=== PATIENT | female | born 1935 | race Caucasian/White ===

== ENCOUNTER 2020-02-04 18:39 | Emergency (ER) | payer MEDICARE, MEDICAID ==
[~2020-02-04] VITALS: Ht 160 cm; Wt 91.6 kg
[2020-02-04 18:48] VITALS: BP_SYST 126
--- NOTE | 2020-02-04 18:48 | NUR ---
Patient denied any chest pain or shortness of breath. Told to wait in the [place]. Informed of the approximate wait time. Instructed to notify ED staff for any changes in condition or worsening of symptoms while waiting to be seen by the provider. Patient verbalized understanding.
--- NOTE | 2020-02-04 18:56 | NUR ---
NICHELLE Bah at bedside examining patient.
[2020-02-04] MEDS ORDERED: NS 500 ML IV ONE (19:00)
[2020-02-04] MEDS ORDERED: ACETAMINOPHEN 500 MG TABLET PO ONE (19:00)
[2020-02-04] MEDS ORDERED: METOCLOPRAMIDE HCL 10 MG/2 ML VIAL IVP ONE (19:00)
--- NOTE | 2020-02-04 19:01 | NUR ---
Patient to ER bed 06 to gown for evaluation. Side rails up.
--- NOTE | 2020-02-04 19:05 | NUR ---
pt BIB ALS from home c/o of syncopal episode while pushing and straining on the toilet at home. pt reports this is not the first time this has happened. EMS reports pt being nauseous, vomiting, and having a nosebleed prior to arrival. pt reports having a headache at the moment.
--- NOTE | 2020-02-04 19:05 | NUR ---
# 20 gauge angiocath placed to LEFT HAND PLACED BY FIRE. Flushed with 10 cc of normal saline. No evidence of infiltration noted. Patient tolerated well.
--- NOTE | 2020-02-04 19:14 | NUR ---
pt a&o x4, reports being nauseous and dizzy, denies pain.
--- NOTE | 2020-02-04 19:15 | NUR ---
honey - JESSE 58. notified and ordered 50mL of d50
[2020-02-04 19:21] LABS: BASOPHILS # (AUTO) 0.1 K/uL (0.0-0.2); BASOPHILS % (AUTO) 0.7 % (0.0-2.0); EOSINOPHILS # (AUTO) 0.2 K/uL (0.0-0.4); EOSINOPHILS % (AUTO) 2.6 % (0.0-4.0); HEMATOCRIT 37.9 % (36-48); HEMOGLOBIN 12.3 g/dL (12.0-16.0); LYMPHOCYTES % (AUTO) 34.5 % (20.5-51.5); MEAN CORPUSCULAR HEMOGLOBIN 30 pg (27-31); MEAN CORPUSCULAR HGB CONC 33 % (32-36); MEAN CORPUSCULAR VOLUME 91 fL (79.0-98.0); MONOCYTES # (AUTO) 0.7 K/uL (0.0-1.0); MONOCYTES % (AUTO) 8.2 % (1.7-9.3); NEUTROPHILS # (AUTO) 4.6 K/uL (1.8-7.7); PLATELET COUNT (AUTO) 196 K/uL (130-430); RED BLOOD CELL COUNT(AUTO) 4.17 MIL/uL (4.2-6.2); RED CELL DISTRIBUTION WIDTH 14.1 % (9.0-15.0); WHITE BLOOD COUNT (AUTO) 8.6 K/uL (4.8-10.8)
--- NOTE | 2020-02-04 19:21 | NUR ---
Received report from KIRSTY Almeida for continuation of care.
[2020-02-04] MEDS ORDERED: DEXTROSE 50% JECT 50 ML DISP.SYRIN IVP ONE ×2 (19:30→21:45)
[2020-02-04 19:33] LABS: ANION GAP 9 (5-15); CALCIUM 10.1 mg/dL (8.4-11.0); CHLORIDE 103 mmol/L (98-107); CREATININE 1.34 mg/dL (0.55-1.30); GLUCOSE 58 mg/dL (70-99); POTASSIUM 4.1 mmol/L (3.5-5.1); SODIUM SERUM 141 mmol/L (136-145); UREA NITROGEN, BLOOD 25 mg/dL (8-21)
[2020-02-04 19:42] LABS: ALANINE AMINOTRANSFERASE 11 U/L (12-78); ALBUMIN 3.1 g/dL (3.4-4.8); ASPARTATE AMINOTRANSFERASE 18 U/L (10-37); TOTAL BILIRUBIN 0.3 mg/dL (0.0-1.0)
--- NOTE | 2020-02-04 20:01 | NUR ---
honey - bs 178. aware.
--- NOTE | 2020-02-04 20:16 | NUR ---
pt unable to give urine sample at this time.
--- NOTE | 2020-02-04 20:40 | NUR ---
spoke with pts son Arya, and updated him on status of pt with approval from pt beforehand.
--- NOTE | 2020-02-04 20:42 | NUR ---
Patient transported to radiology via [facility], accompanied by pilar.
--- NOTE | 2020-02-04 21:35 | NUR ---
honey - bs 104. aware.
--- NOTE | 2020-02-04 21:40 | NUR ---
pt given orange juice and cranberry juice to drink.
--- NOTE | 2020-02-04 21:55 | NUR ---
spoke with son Arya to be able to give pt ride home.
[2020-02-04 22:15] VITALS: BP_SYST 146
== END 2020-02-04 22:15 | disposition home or self-care (01) ==
LOC: SED 18:39
DX: S00.83XA Contusion of other part of head, initial encounter (principal); R55 Syncope and collapse; E11.649 Type 2 diabetes mellitus with hypoglycemia without coma; I10 Essential (primary) hypertension; Z88.0 Allergy status to penicillin; W22.8XXA Striking against or struck by other objects, initial encounter; Y93.89 Activity, other specified; Y92.89 Other specified places as the place of occurrence of the external cause; Y99.8 Other external cause status
CPT/HCPCS: 36415; 70450; 80053; 82962; 84484; 85025; 93005; 96361; 96374; 96375; 96376; 99285; J2765; J7040

== ENCOUNTER 2021-10-28 05:36 | Inpatient (IN) | payer MEDICARE, MEDICAID ==
[~2021-10-28] VITALS: Ht 160 cm; Wt 91.2 kg
[2021-10-28 05:40] VITALS: BP_SYST 158
--- NOTE | 2021-10-28 05:40 | NUR ---
Placed in room 2 . Placed on cardiac rn, blood pressure machine and pulse oximeter. To gown for exam. Side rails up. Report given to Alea LOFTON (Reg)by Cheyenne LOFTON(rosa).
--- NOTE | 2021-10-28 05:41 | NUR ---
86 YR OLD AOX4, FEMALE PT BROUGHT IN BY ALS WITH COMPLAINT OF CHEST PAIN WITH RADIATION TO LEFT SHOULDER WITH SOB. PT REPORTS HAVING LEFT SHOULDER PAIN FOR ONE DAY WITH HORTNESS OF BREATH. PT STATES YESTERDAY SHE TOOK THREE DOESES OF NITRO AND THE CHEST PAIN WAS RELIEVED. PER PARAMEDICS PT WS ADMINISTERED 324 OF ASA, AND ONE SPRAY OF NITRO SUBLINGUAL IN ROUTE. MD AT THE BEDSIDE.
--- NOTE | 2021-10-28 05:44 | NUR ---
NICHELLE Guaman at bedside examining patient.
[2021-10-28] MEDS ORDERED: NITROGLYCERIN 1 INCH (GM) OINT. TD ONE (05:45)
[2021-10-28] MEDS ORDERED: ASCO500T20 PO (06:14)
[2021-10-28] MEDS ORDERED: METO50TA7 PO (06:14)
[2021-10-28] MEDS ORDERED: ASPI-1155 PO (06:14)
[2021-10-28] MEDS ORDERED: INSULIN N SQ ×2 (06:14)
[2021-10-28] MEDS ORDERED: CLOP75TA32 PO (06:14)
[2021-10-28] MEDS ORDERED: CARB1TAB10 PO (06:14)
[2021-10-28] MEDS ORDERED: AMLO5TAB4 PO (06:14)
[2021-10-28] MEDS ORDERED: LIP20 PO (06:14)
[2021-10-28] MEDS ORDERED: LISI10TA29 PO (06:14)
[2021-10-28] MEDS ORDERED: ISOS120T8 PO (06:14)
[2021-10-28 06:18] LABS: BASOPHILS # (AUTO) 0.1 K/uL (0.0-0.2); BASOPHILS % (AUTO) 0.5 % (0.0-2.0); EOSINOPHILS # (AUTO) 0.1 K/uL (0.0-0.4); EOSINOPHILS % (AUTO) 0.6 % (0.0-4.0); HEMATOCRIT 38.1 % (36-48); HEMOGLOBIN 12.4 g/dL (12.0-16.0); LYMPHOCYTES # (AUTO) 2.1 K/uL (1.0-5.5); LYMPHOCYTES % (AUTO) 16.4 % (20.5-51.5); MEAN CORPUSCULAR HEMOGLOBIN 29 pg (27-31); MEAN CORPUSCULAR HGB CONC 33 % (32-36); MEAN CORPUSCULAR VOLUME 87 fL (79.0-98.0); MONOCYTES # (AUTO) 1.2 K/uL (0.0-1.0); MONOCYTES % (AUTO) 9.3 % (1.7-9.3); NEUTROPHILS # (AUTO) 9.3 K/uL (1.8-7.7); NEUTROPHILS % (AUTO) 73.2 % (40.0-70.0); PLATELET COUNT (AUTO) 144 K/uL (130-430); RED BLOOD CELL COUNT(AUTO) 4.36 MIL/uL (4.2-6.2); RED CELL DISTRIBUTION WIDTH 15.1 % (9.0-15.0); WHITE BLOOD COUNT (AUTO) 12.7 K/uL (4.8-10.8)
[2021-10-28] MEDS ORDERED: CALCIUM PO (06:24)
[2021-10-28 06:31] LABS: ANION GAP 6 (5-15); CALCIUM 8.7 mg/dL (8.4-11.0); CHLORIDE 105 mmol/L (98-107); CREATININE 1.71 mg/dL (0.55-1.30); GLUCOSE 206 mg/dL (70-99); POTASSIUM 4.4 mmol/L (3.5-5.1); SODIUM SERUM 137 mmol/L (136-145); UREA NITROGEN, BLOOD 37 mg/dL (8-21)
[2021-10-28 06:40] LABS: ALANINE AMINOTRANSFERASE 37 U/L (12-78); ALBUMIN 3.1 g/dL (3.4-4.8); ASPARTATE AMINOTRANSFERASE 51 U/L (10-37); TOTAL BILIRUBIN 0.3 mg/dL (0.0-1.0)
--- NOTE | 2021-10-28 06:45 | NUR ---
Critical lab; troponin of 2985 relayed to
--- NOTE | 2021-10-28 06:48 | NUR ---
Pt's son is at bedside.
--- NOTE | 2021-10-28 07:04 | NUR ---
REPORT RECEIVED FROM KIRSTY WHITTAKER FOR CONTINUING CARE
--- NOTE | 2021-10-28 07:31 | NUR ---
DR. ANGEL AT THE BEDSIDE
--- NOTE | 2021-10-28 07:35 | NUR ---
Admit bed requested Patient will be admitted to care of . Admitted to TELE unit. Diagnosis NSTEMI Inpatient (Yes or No) YES Observation (Yes or No) NO Orientation concerns or request close to nursing station (Yes or No) NO Covid Status NEGATIVE On vent or bipap NO Isolation requirements NO Needs a sitter NO From Home (Yes or if No enter name of facility) HOME Requires Dialysis (Yes or No) NO Med Rec Completed (Yes of No) YES
[2021-10-28] MEDS ORDERED: ZOLPIDEM TARTRATE 5 MG TABLET PO PRN (07:45)
[2021-10-28] MEDS ORDERED: ACETAMINOPHEN 325 MG TABLET PO PRN ×2 (07:45→09:30)
[2021-10-28] MEDS ORDERED: MAGNESIUM SULFATE 50 ML IV PRN (07:45)
[2021-10-28] MEDS ORDERED: POTASSIUM CHLORIDE 20 MEQ TAB.PRT.SR PO PRN (07:45)
[2021-10-28] MEDS ORDERED: DOCUSATE SODIUM 100 MG CAPSULE PO PRN (07:45)
[2021-10-28] MEDS ORDERED: MUPIROCIN 2% TOPICAL OINTMENT 22 GM NS PRN (07:45)
[2021-10-28] MEDS ORDERED: ONDANSETRON HCL 4 MG/2 ML VIAL IVP PRN (07:45)
[2021-10-28] MEDS ORDERED: DEXTROSE 50% JECT 50 ML DISP.SYRIN IVP PRN (07:45)
[2021-10-28] MEDS ORDERED: LORazepam 2 MG/ML VIAL IVP PRN (07:45)
[2021-10-28 08:12] LABS: PROTHROMBIN TIME 9.9 SECS (9.5-12.5)
--- NOTE | 2021-10-28 08:55 | NUR ---
DR. GALICIA AT THE BEDSIDE
--- NOTE | 2021-10-28 09:08 | NUR ---
Patient will be admitted to care of DR. ANGEL. Admitted to TELE unit. Will go to room 130A. Belongings list completed. Complete and up to date summary report printed. SBAR report to be given at bedside with opportunity for questions.
--- NOTE | 2021-10-28 09:11 | NUR ---
ECHO AT THE BEDSIDE
[2021-10-28] MEDS ORDERED: METO50TA16 PO (09:30)
--- NOTE | 2021-10-28 09:38 | NUR ---
CONSULTATION PAGED/CALLED Reason for Consultation: [] NSTEMI Person Who was Notified: [] DR GALICIA Consulting Physician: [] DR GALICIA Surface Miner Specialty: [] CARDIO Ordering Physician: [] DR ANGEL
[2021-10-28 10:00] VITALS: BP_SYST 119
--- NOTE | 2021-10-28 10:11 | NUR ---
admission notes received pt joby ma with diagnosis of nstemi, under dr reed, dr hickey also on the case, per report pt seen by pcp and cardio. vitals wnl, no fever, no sob, no c/o of pain. pt educated on the use of call light and bed controls. will cont to monitor,
[2021-10-28 10:30] VITALS: BP_SYST 119
[2021-10-28] MEDS: NACL 0.9% 1,000 ML IV SCH ×2 (11:08→22:27)
[2021-10-28] MEDS: ISOSORBIDE MONONITRATE 30 MG TAB.ER.24H PO SCH (11:15)
[2021-10-28] MEDS: ATORVASTATIN 20 MG TABLET PO SCH (11:16)
[2021-10-28] MEDS: amLODIPine BESYLATE 5 MG TABLET PO SCH (11:16)
[2021-10-28] MEDS: INSULIN LISPRO SLIDING SCALE 100 UNITS/ML VIAL (humaLOG) SUBCUT PRN ×2 (11:34→17:14)
[2021-10-28] MEDS ORDERED: HEPARIN SODIUM,PORCINE 5,000 UNITS/ML VIAL IVP ONE (12:45)
[2021-10-28] MEDS ORDERED: HEPARIN SODIUM,PORCINE 5,000 UNITS/ML VIAL ONE (12:54)
[2021-10-28] MEDS: HEPARIN 25,000 UNITS/D5W 250ML 250 ML IV PRN ×3 (13:05→22:24)
--- NOTE | 2021-10-28 13:05 | NUR ---
pt started on heparin drip, bolus ivp heparin given.
[2021-10-28] MEDS: CARBIDOPA/LEVODOPA 25/100 MG TABLET PO SCH ×2 (15:24→20:58)
[2021-10-28] MEDS: HEPARIN SODIUM,PORCINE 3000 UNITS/0.6 ML BOLUS IVP PRN ×2 (15:29→22:11)
[2021-10-28 17:00] VITALS: BP_SYST 108
--- NOTE | 2021-10-28 17:14 | NUR ---
paged dr thompson for pt's c/o of soreness on mid/left chest when breathing, troponin also high. trending up. pt on heparin drip.
--- NOTE | 2021-10-28 17:20 | NUR ---
LUNCHROOM SUPERVISOR DR GALICIA WAS CALLED, RE: TRENDING UP TROP LEVEL. SPOKE TO VICKIE.
--- NOTE | 2021-10-28 20:00 | NUR ---
Cardio Patient kept on 2 liters of oxygen per MED per patient with chest discomfort only if she takes a deep breath, telemetry with inverted T wave , received on heparin drip @ 200 units/ml, bleeding/ fall precaution explained to patient indication of medication verbalized understanding
[2021-10-28 20:30] VITALS: BP_SYST 140
[2021-10-28] MEDS: METOPROLOL TARTRATE 50 MG TABLET PO SCH (20:56)
--- NOTE | 2021-10-28 22:10 | NUR ---
Heparin drip increase to 400 units/hour PTT 24.7 per protocol 3000 units of heparin IV push given , heparin drip increase by 200 units/hour total 400 units per hour , co signed by charge nurse Rashard, next PTT requested for 0430 hour , patient informed regarding medication and next blood draw denies any chest pain.
[2021-10-29 00:10] VITALS: BP_SYST 122
--- NOTE | 2021-10-29 01:00 | NUR ---
PATIENT RESTING: Patient resting quietly. No acute distress noted. Vital signs within normal range.
--- NOTE | 2021-10-29 03:45 | NUR ---
Patient alert/oriented x4 denies any chest pain ,on heparin drip @ 400 units/hour , perineal care given,repositioned.
[2021-10-29 06:31] LABS: ANION GAP 4 (5-15); CHLORIDE 108 mmol/L (98-107); CREATININE 1.47 mg/dL (0.55-1.30); GLUCOSE 151 mg/dL (70-99); POTASSIUM 4.7 mmol/L (3.5-5.1); SODIUM SERUM 137 mmol/L (136-145); UREA NITROGEN, BLOOD 37 mg/dL (8-21)
[2021-10-29 06:32] LABS: BASOPHILS % (AUTO) 0.4 % (0.0-2.0); EOSINOPHILS # (AUTO) 0.1 K/uL (0.0-0.4); EOSINOPHILS % (AUTO) 1.5 % (0.0-4.0); HEMATOCRIT 31.4 % (36-48); HEMOGLOBIN 10.4 g/dL (12.0-16.0); LYMPHOCYTES % (AUTO) 24.2 % (20.5-51.5); MEAN CORPUSCULAR HEMOGLOBIN 29 pg (27-31); MEAN CORPUSCULAR HGB CONC 33 % (32-36); MEAN CORPUSCULAR VOLUME 88 fL (79.0-98.0); MONOCYTES # (AUTO) 0.9 K/uL (0.0-1.0); MONOCYTES % (AUTO) 11.5 % (1.7-9.3); NEUTROPHILS # (AUTO) 5.1 K/uL (1.8-7.7); NEUTROPHILS % (AUTO) 62.4 % (40.0-70.0); PLATELET COUNT (AUTO) 117 K/uL (130-430); RED BLOOD CELL COUNT(AUTO) 3.56 MIL/uL (4.2-6.2); RED CELL DISTRIBUTION WIDTH 15.2 % (9.0-15.0); WHITE BLOOD COUNT (AUTO) 8.1 K/uL (4.8-10.8)
--- NOTE | 2021-10-29 07:15 | NUR ---
Endorsed patient to day shift , on heparin drip 400 units/hour , denies any chest pain , awaiting for PTT result .
--- NOTE | 2021-10-29 07:30 | NUR ---
Initial Notes Patient in bed, awake, alert, and oriented. Vital signs obtained. Patient denies any chest pain or discomfort. Patient is on 2L Spo2 99%. Breathing is even and unlabored. Patient repositioned and HOB elevated, ready for breakfast. Safety precautions in place and call light within reach.
[2021-10-29] MEDS: HEPARIN 25,000 UNITS/D5W 250ML 250 ML IV PRN ×2 (07:56→16:16)
[2021-10-29] MEDS: HEPARIN SODIUM,PORCINE 2000 UNITS/0.4 ML BOLUS IVP PRN ×2 (07:57→16:16)
[2021-10-29 08:00] VITALS: BP_SYST 130
--- NOTE | 2021-10-29 08:01 | NUR ---
Notes PTT is 37.1 increase to 200units and given 2000units of heparin IVP as per protocol. heparin drip is at 600 unit s at this time. will re check PTT in 6 hours.
--- NOTE | 2021-10-29 08:02 | NUR ---
MD rounds Seen by Dr. Miner at bedside. aware of troponin results.
[2021-10-29] MEDS: ATORVASTATIN 20 MG TABLET PO SCH (08:47)
[2021-10-29] MEDS: METOPROLOL TARTRATE 50 MG TABLET PO SCH (08:47)
[2021-10-29] MEDS: ISOSORBIDE MONONITRATE 30 MG TAB.ER.24H PO SCH (08:48)
[2021-10-29] MEDS: amLODIPine BESYLATE 5 MG TABLET PO SCH (08:48)
[2021-10-29] MEDS: CARBIDOPA/LEVODOPA 25/100 MG TABLET PO SCH ×2 (08:49→14:43)
[2021-10-29 12:00] VITALS: BP_SYST 109
--- NOTE | 2021-10-29 12:00 | NUR ---
NOTES PATIENT IS SITTING ON THE BED, EATING LUNCH. FAMILY IS AT BEDSIDE. PATIENT DENIES ANY CHEST PAIN OR SOB. VITAL SIGNS OBTAINED. SPO2 100% AT 2L NC. BED IS AT LOWEST POSITION, LOCKED, ALARM ON, AND SIDE RAILS UP. CALL LIGHT WITHIN REACH.
[2021-10-29] MEDS: NACL 0.9% 1,000 ML IV SCH (12:33)
[2021-10-29 16:00] VITALS: BP_SYST 130
--- NOTE | 2021-10-29 16:00 | NUR ---
NOTES PATIENT IS AWAKE. COMPLAINS OF NO CHEST PAIN OR SOB. ASSISTED PATIENT TO THE COMMODE. TOLERATED WELL. PATIENT BACK IN BED. SAFETY PRECAUTIONS IN PLACE AND CALL LIGHT WITHIN REACH.
[2021-10-29] MEDS: INSULIN LISPRO SLIDING SCALE 100 UNITS/ML VIAL (humaLOG) SUBCUT PRN (16:35)
--- NOTE | 2021-10-29 16:50 | NUR ---
HIGH ALERT NOTE: Called Dr. thompson back at [phone] identified within the medical roster to verify physician authenticity.
[2021-10-29] MEDS ORDERED: HEPARIN SODIUM,PORCINE 5,000 UNITS/ML VIAL IVP ONE (17:00)
[2021-10-29 17:23] VITALS: BP_SYST 130
--- NOTE | 2021-10-29 18:20 | NUR ---
CLOSING NOTES PATIENT IN BED, HOB ELEVATED, EATING DINNER. SAFETY PRECAUTIONS IN PLACE AND CALL LIGHT WITHIN REACH. PATIENT IS TO BE TRANSFERRED TO [facility]. WOOD MACHINE CARVER TIME IS SET UP AT 8PM. PATIENT IS AWARE. Addendum: 10/29/21 at 1905 by Sol Jules LVN CLOSING NOTES PATIENT IN BED, HOB ELEVATED, EATING DINNER. SAFETY PRECAUTIONS IN PLACE AND CALL LIGHT WITHIN REACH. PATIENT IS TO BE TRANSFERRED TO [facility]. WOOD MACHINE CARVER TIME IS SET UP AT 8PM. PATIENT AND FAMILY AWARE, FAMILY AT BEDSIDE. PATIENT DENIES ANY CHEST PAIN. CALLED [facility] AND SPOKE TO BECK LOFTON- GAVE REPORT.
--- NOTE | 2021-10-29 20:47 | NUR ---
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 Report given to Aisha Hanson RN gave report paper and CD with the ambulance transfer. Patient going to [facility]
== END 2021-10-29 20:45 | disposition short-term general hospital (02) | DRG 280 ==
LOC: SED 05:36 → STU 07:33
PROVIDERS: ADMIT General Practice; ATTEND General Practice
DX: I21.4 Non-ST elevation (NSTEMI) myocardial infarction (principal); N17.0 Acute kidney failure with tubular necrosis; E78.5 Hyperlipidemia, unspecified; E66.01 Morbid (severe) obesity due to excess calories; I25.10 Atherosclerotic heart disease of native coronary artery without angina pectoris; Z66 Do not resuscitate; Z20.822 Contact with and (suspected) exposure to COVID-19; I12.9 Hypertensive chronic kidney disease with stage 1 through stage 4 chronic kidney disease, or unspecified chronic kidney disease; N18.30 Chronic kidney disease, stage 3 unspecified; E11.22 Type 2 diabetes mellitus with diabetic chronic kidney disease; G20 Parkinson's disease; M19.90 Unspecified osteoarthritis, unspecified site; Z68.35 Body mass index [BMI] 35.0-35.9, adult; I25.2 Old myocardial infarction; Z79.4 Long term (current) use of insulin; Z86.73 Personal history of transient ischemic attack (TIA), and cerebral infarction without residual deficits; Z87.891 Personal history of nicotine dependence; Z90.49 Acquired absence of other specified parts of digestive tract; Z88.5 Allergy status to narcotic agent; Z88.0 Allergy status to penicillin
CPT/HCPCS: 36415; 71045; 80048; 80053; 82962; 83036; 83735; 83880; 84484; 85025; 85610-TC; 85730-TC; 93005; 93306; 99285; G0378; J1644